=== PATIENT | female | born 1995 | race African-American/Black ===

== ENCOUNTER 2016-11-24 18:10 | Emergency (ER) | payer MEDICAID, OTHER ==
[~2016-11-24] VITALS: Ht 167.6 cm; Wt 76.0 kg
[~2016-11-24 18:10] MED LIST: ZOFR4TAB3 SL
[2016-11-24 18:24] VITALS: BP 144/77; PULSE 82; RESP 16; TEMP 98.7; O2SAT 100
[2016-11-24 18:30] VITALS: RESP 16; O2SAT 100
[2016-11-24] MEDS ORDERED: LORazepam 2 MG/ML VIAL IV PUSH SCH (18:30)
[2016-11-24] MEDS ORDERED: SODIUM CHLORIDE 0.9% FLUSH 10 ML FLUSH IVF PRN (18:30)
[2016-11-24] MEDS ORDERED: KETOROLAC TROMETHAMINE 30 MG/ML (IVP) VIAL IV PUSH ONE (18:30)
--- NOTE | 2016-11-24 18:36 | PD ---
HPI . Chest pain Chief Complaint: Chest Pain Time Seen by Provider: 18:18 Travel History International Travel<30 days: No Contact w/Intl Traveler<30days: No Traveled to known affect area: No History of Present Illness HPI Patient presents with chest pain which started this morning. She describes it as a sharp, left-sided chest pain which waxes and wanes and comes and goes. She rates it as an 8/10. It is associated with a stressful situation. It is exacerbated by movement. She has not noted any relieving factors. In addition, she is complaining with throat pain. This started about a week ago. Pain is exacerbated by swallowing and seeming. Pain is unrelieved by hot tea and lemon. She denies any associated symptoms such as fever or upper respiratory symptoms. PFSH Past Medical History Medical History: Denies Significant Hx Diminished Hearing: No Immunizations Current: Yes Influenza Vaccination: No ?: Not LMP: 11/11/16 : 2 Para: 1 Miscarriage: 1 Past Surgical History Surgical History: No Previous Surgery Social History Alcohol Use: Yes (OCCAS) Tobacco Use: No Substance Use: No Allergies-Medications (Allergen,Severity, Reaction): Coded Allergies: *MDRO Multi-Drug Resistant Organism (Verified Allergy, Unknown, 11/24/16) MRSA 05/2013 Abscess Reported Meds & Prescriptions Reported Meds & Active Scripts Active Review of Systems Except as stated in HPI: all other systems reviewed are Neg General / Constitutional: No: Fever, Chills HENT: Positive: Sore Throat, No: Rhinorrhea, Congestion Cardiovascular: Positive: Chest Pain or Discomfort Respiratory: No: Shortness of Breath Gastrointestinal: No: Nausea, Vomiting Physical Exam Narrative Vital Signs Date Time Temp Pulse Resp B/P Pulse Ox O2 Delivery O2 Flow Rate FiO2 11/24/16 18:28 82 11/24/16 18:24 98.7 82 16 144/77 100 GENERAL: Awake and alert and in no acute distress. SKIN: Warm and dry. HEAD: Atraumatic. Normocephalic. EYES: Pupils equal and round. Extraocular movements are intact. ENT: No nasal bleeding or discharge. Mucous membranes pink and moist. Oropharynx looks clear with no erythema, edema or exudate. NECK: Trachea midline. She does have a small lymph node on the right. CARDIOVASCULAR: Regular rate and rhythm. Heart sounds are normal. RESPIRATORY: No accessory muscle use. Lungs are clear with full air movement throughout. Chest wall is diffusely tender to palpation. GASTROINTESTINAL: Abdomen soft, non-tender, nondistended. MUSCULOSKELETAL: No obvious deformities. No edema. NEUROLOGICAL: Awake and alert. No obvious cranial nerve deficits. Motor grossly within normal limits. Normal speech. PSYCHIATRIC: Appropriate mood and affect; insight and judgment normal. Data Data Last Documented VS Vital Signs Date Time Temp Pulse Resp B/P Pulse Ox O2 Delivery O2 Flow Rate FiO2 11/24/16 19:12 88 16 119/74 100 Room Air 11/24/16 18:24 98.7 Orders Basic Metabolic Panel (Bmp) (11/24/16 18:22) Ckmb (Isoenzyme) Profile (11/24/16 18:22) Complete Blood Count With Diff (11/24/16:) Troponin I (11/24/16:) Chest, Single Ap (11/24/16:22) Ecg Monitoring (11/24/16:) Iv Access Insert/Monitor (11/24/16:) Oximetry (11/24/16:22) Sodium Chloride 0.9% Flush (Ns Flush) (11/24/16 18:30) Lorazepam Inj (Ativan Inj) (11/24/16 18:30) Ketorolac Inj (Toradol Inj) (11/24/16 18:30) Ct Soft Tiss Neck W Iv Cont (11/24/16 18:29) Ed Urine Pregnancytest Poc (11/24/16 18:30) CKMB (11/24/16 18:40) CKMB% (11/24/16 18:40) Labs Laboratory Tests Test 11/24/16 18:40 White Blood Count 7.7 TH/MM3 Red Blood Count 4.39 MIL/MM3 Hemoglobin 12.4 GM/DL Hematocrit 37.7 % Mean Corpuscular Volume 85.9 FL Mean Corpuscular Hemoglobin 28.2 PG Mean Corpuscular Hemoglobin 32.9 % Concent Red Cell Distribution Width 12.4 % Platelet Count 147 TH/MM3 Mean Platelet Volume 8.6 FL Neutrophils (%) (Auto) 51.4 % Lymphocytes (%) (Auto) 40.6 % Monocytes (%) (Auto) 6.3 % Eosinophils (%) (Auto) 0.4 % Basophils (%) (Auto) 1.3 % Neutrophils # (Auto) 4.0 TH/MM3 Lymphocytes # (Auto) 3.1 TH/MM3 Monocytes # (Auto) 0.5 TH/MM3 Eosinophils # (Auto) 0.0 TH/MM3 Basophils # (Auto) 0.1 TH/MM3 CBC Comment DIFF FINAL Differential Comment Sodium Level 142 MEQ/L Potassium Level 3.6 MEQ/L Chloride Level 105 MEQ/L Carbon Dioxide Level 27.0 MEQ/L Anion Gap 10 MEQ/L Blood Urea Nitrogen 10 MG/DL Creatinine 0.84 MG/DL Estimat Glomerular Filtration 102 ML/MIN Rate Random Glucose 89 MG/DL Calcium Level 8.8 MG/DL Total Creatine Kinase 259 U/L Creatine Kinase MB 0.9 NG/ML Creatine Kinase MB % 0.3 % Troponin I LESS THAN 0.02 NG/ML MDM Medical Decision Making Medical Screen Exam Complete: Yes Emergency Medical Condition: Yes Interpretation(s) EKG shows a normal sinus rhythm with no acute ischemic changes. Differential Diagnosis Differential diagnosis of chest pain includes but is not limited to musculoskeletal pain, pulmonary embolism, acute coronary syndrome, pneumonia, pleurisy Differential diagnosis of sore throat includes but is not limited to viral illness, strep throat, mononucleosis, retropharyngeal abscess, peritonsillar abscess Narrative Course Patient presents with chief complaint of sharp left-sided chest pain and the secondary complaint of throat pain. Her exam regarding chest pain is significant for reproducible chest wall tenderness. Exam of the oropharynx is negative. She does have a small cervical lymph node on the right. PERC negative. CBC & BMP Diagram 11/24/16 18:40 CK 259. CKMB 0.9. Trop < 0.02. CXR is negative to my interpretation. Last Impressions Neck CT 11/24/161828 Signed Impressions: Service Date/Time: November 19:22 - CONCLUSION: Normal examination. Sam Koo MD Chest X-Ray 11/24/161821 Signed Impressions: Service Date/Time: November 18:56 - CONCLUSION: No acute disease. Sam Koo MD Clinically, this patient has chest wall pain. She also has a small, palpable right cervical lymph node. She is stable for discharge to home. Diagnosis Primary Impression: Chest wall pain Additional Impression: Cervical lymphadenopathy Patient Instructions: Chest Wall Pain (ED), General Instructions, Lymphadenopathy (ED), Narcotic given in the ED Med/Other Pt SpecificInfo: Prescription(s) given Scripts Tramadol (Ultram)50 Mg Tab50 Mg PO Q4H PRN (PAIN) #12 TAB Ref 0 Prov:Tennille Arroyo MD 11/24/16 Ibuprofen 800 Mg [id number] Mg PO Q8H PRN (Pain/Inflammation) #60 TAB Ref 0 Prov:Tennille Arroyo MD 11/24/16 Disposition: 01 DISCHARGE HOME Condition: Stable Tennille Arroyo MD November 24, 2016 18:36
[2016-11-24 19:00] LABS: BASOPHIL # 0.1 TH/MM3 (0-0.2); BASOPHIL % 1.3 % (0.0-2.0); EOSINOPHIL % 0.4 % (0.0-4.0); HEMATOCRIT 37.7 % (35.0-46.0); HEMO FLAGS DIFF FINAL; LYMPH % 40.6 % (9.0-44.0); LYMPHOCYTE # 3.1 TH/MM3 (1.0-4.8); MEAN CELL VOLUME 85.9 FL (80.0-100.0); MEAN CORPUSCULAR HEMOGLOBIN 28.2 PG (27.0-34.0); MEAN CORPUSCULAR HGB CONC 32.9 % (32.0-36.0); MONO % 6.3 % (0.0-8.0); NEUT % 51.4 % (16.0-70.0); PLATELET COUNT 147 TH/MM3 (150-450); RED BLOOD COUNT 4.39 MIL/MM3 (4.00-5.30); RED CELL DISTRIBUTION WIDTH 12.4 % (11.6-17.2); WHITE BLOOD COUNT 7.7 TH/MM3 (4.0-11.0)
--- NOTE | 2016-11-24 19:07 | RADHPO ---
EXAM DATE/TIME: 11/24/2016 18:56 [facility] COMPARISON: No previous studies available for comparison. INDICATIONS : Patient states chest pain since this morning. MEDICAL HISTORY : None. SURGICAL HISTORY : None. ENCOUNTER: Initial ACUITY: 1 day PAIN SCORE: 7/10 LOCATION: [facility]. FINDINGS: A single view of the chest demonstrates the lungs to be symmetrically aerated without evidence of mas s, infiltrate or effusion. The cardiomediastinal contours are unremarkable. Osseous structures are intact. CONCLUSION: No acute disease. Sam Koo MD on November 24, 2016 at 19:05 Board Certified Radiologist. This report was verified electronically.
[2016-11-24 19:08] LABS: CHLORIDE 105 MEQ/L (98-107); POTASSIUM 3.6 MEQ/L (3.5-5.1); SODIUM (NA) 142 MEQ/L (136-145)
[2016-11-24 19:11] LABS: ANION GAP 10 MEQ/L (5-15); BLOOD UREA NITROGEN 10 MG/DL (7-18)
[2016-11-24 19:12] VITALS: BP 119/74; PULSE 88; RESP 16; O2SAT 100
[2016-11-24 19:14] LABS: GLOMERULAR FILTRATION RATE 102 ML/MIN (>89)
[2016-11-24 19:18] LABS: CREATINE KINASE 259 U/L (26-192)
[2016-11-24] MEDS ORDERED: IOHEXOL 350 MG/ML 10 ML VIAL (for RAD DIAG) IV ONE (19:22)
[2016-11-24 19:30] LABS: CKMB 0.9 NG/ML (0.5-3.6)
--- NOTE | 2016-11-24 19:51 | RADHPO ---
EXAM DATE/TIME: 11/24/2016 19:22 [facility] COMPARISON: No previous studies available for comparison. INDICATIONS : Sore throat for a week IV CONTRAST: 66 cc Omnipaque 300 (iohexol) IV RADIATION DOSE: 13.75 CTDIvol (mGy) MEDICAL HISTORY : None SURGICAL HISTORY : ENCOUNTER: Initial ACUITY: 1 week PAIN SCALE: 8/10 LOCATION: Right neck throat TECHNIQUE: Volumetric scanning of the neck was performed. Using automated exposure control and adjustment of th e mA and/or kV according to patient size, radiation dose was kept as low as reasonably achievable to obtain optimal diagnostic quality images. FINDINGS: NASOPHARYNX: The nasopharyngeal airway has a normal configuration. No mucosal thickening or mass is seen. OROPHARYNX: The intrinsic muscles of the tongue are symmetric. The tonsillar pillars are intact. The prevertebr al soft tissues are not thickened. LARYNX: The supraglottic, glottic, and infraglottic structures are intact. PARAPHARYNGEAL: The parapharyngeal space is intact. SALIVARY GLANDS: The parotid and submandibular glands are intact. LYMPH NODES: No enlarged or necrotic-appearing nodes. THYROID: Homogeneous enhancement without evidence of nodule. BONES: Unremarkable. CONCLUSION: Normal examination. Sam Koo MD on November 24, 2016 at 19:44 Board Certified Radiologist. This report was verified electronically.
[2016-11-24] MEDS ORDERED: ULTR50TA5 PO (20:01)
[2016-11-24] MEDS ORDERED: IBUP800T23 PO (20:01)
--- NOTE | 2016-11-25 06:39 | EKG ---
Date Performed: 11/24/2016 Time Performed: 18:17:02 PTAGE: 21 years EKG: Sinus rhythm Normal ECG NO PREVIOUS TRACING DOCTOR: Ramiro Madden Interpretating Date/Time 11/25/2016 06:39:23
== END 2016-11-24 20:17 | disposition home or self-care (01) ==
LOC: PHED 18:10
DX: R07.89 Other chest pain (principal); R59.1 Generalized enlarged lymph nodes; R07.0 Pain in throat
CPT/HCPCS: 70491; 71010; 80048; 82550; 82552; 84484; 84703; 85025; 93005; 96374; 96375; 99284; J1885; J2060; Q9967

== ENCOUNTER 2016-12-28 11:17 | Emergency (ER) | payer MEDICAID ==
[~2016-12-28 11:17] MED LIST changes: +IBUP800T23 PO; +ULTR50TA5 PO; -ZOFR4TAB3 SL
[2016-12-28 11:26] VITALS: BP 122/89; PULSE 88; RESP 20; TEMP 98.4; O2SAT 100
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
== END 2016-12-28 13:06 | disposition home or self-care (01) ==
LOC: PHEFT 11:17
DX: O26.91 Pregnancy related conditions, unspecified, first trimester (principal); R51 Headache; S16.1XXA Strain of muscle, fascia and tendon at neck level, initial encounter; Z3A.01 Less than 8 weeks gestation of pregnancy; V43.52XA Car driver injured in collision with other type car in traffic accident, initial encounter; Y93.89 Activity, other specified; Y92.410 Unspecified street and highway as the place of occurrence of the external cause; Y99.8 Other external cause status
CPT/HCPCS: 99282